=== PATIENT | female | born 1960 | race Caucasian/White ===

== ENCOUNTER 2021-01-13 18:19 | Emergency (ER) | payer MEDICARE, OTHER ==
[~2021-01-13] VITALS: Ht 167.6 cm; Wt 89.4 kg
--- NOTE | 2021-01-13 18:33 | NUR ---
DR SCHNEIDER AT THE BEDSIDE
--- NOTE | 2021-01-13 18:33 | NUR ---
URINE COLLECTED AND SENT TO THE LAB
--- NOTE | 2021-01-13 18:35 | NUR ---
[id number] FROM HOME C/O R SIDED NUMBNESS THAT STARTED 1 HOUR [employer]. THE PATIENT IS ALERT AND ORIENTED X4. THE PATIENT STATES THAT SHE DOES NOT HAVE ANY NUMBNESS AT THIS TIME. DENIES PAIN/DISCOMFORT. IN ROOM AIR AND DENIES SOB. RESPIRATIONR EGULAR AND UNLABORED. WILL CONTINUE TO MONITOR THE PATIENT.
[2021-01-13] MEDS ORDERED: IOHEXOL-350 100 ML VIAL IV ONE (18:55)
[2021-01-13] MEDS ORDERED: IV NS 0.9% 250 ML IV ONE (18:55)
[2021-01-13] MEDS ORDERED: hydrALAZINE HCL IV 20 MG VIAL IV ONE (19:00)
[2021-01-13 19:06] LABS: BASOPHILS % (AUTO) 0.8 % (0.0-2.0); EOSINOPHILS % (AUTO) 2.1 % (0.0-6.0); HEMATOCRIT 41 % (33-45); HEMOGLOBIN 13.3 g/dL (11.5-14.8); LYMPHOCYTES # (AUTO) 1.7 K/uL (0.8-4.8); LYMPHOCYTES % (AUTO) 29.4 % (20.0-44.0); MEAN CORPUSCULAR HGB CONC 33 g/dl (31.0-36.0); MEAN CORPUSCULAR VOLUME 96 fL (82-100); MONOCYTES # (AUTO) 0.4 K/uL (0.1-1.30); MONOCYTES % (AUTO) 7.5 % (2.0-12.0); NEUTROPHILS # (AUTO) 3.6 K/uL (1.8-8.9); NEUTROPHILS % (AUTO) 60.2 % (43.0-81.0); PLATELET COUNT (AUTO) 225 K/uL (150-450); RED BLOOD CELL COUNT(AUTO) 4.23 MIL/uL (4.0-5.2); WHITE BLOOD COUNT (AUTO) 5.9 K/uL (4.3-11.0)
[2021-01-13 19:14] LABS: CALCIUM, SERUM 8.8 mg/dL (8.5-10.1); CARBON DIOXIDE 24 mmol/L (21-32); CHLORIDE 108 mmol/L (98-107); GLUCOSE 102 mg/dL (74-106); POTASSIUM 4.3 mmol/L (3.5-5.1); SODIUM SERUM 143 mmol/L (136-145); UREA NITROGEN, BLOOD 24 mg/dL (7-18)
--- NOTE | 2021-01-13 19:19 | NUR ---
REPORT GIVEN TO NURSE HAND
--- NOTE | 2021-01-13 19:37 | NUR ---
PT TAKEN TO CT
--- NOTE | 2021-01-13 20:24 | NUR ---
Patient does not wish to proceed with medical care recommended by Dr Howe.Pt given information related to possible complications, up to and including , which could occur as a result of leaving the hospital at this time. Patient verbalizes understanding of risks involved due to leaving against medical advice. Patient has signed AMA form.
[2021-01-13 20:26] VITALS: BP 137/76
== END 2021-01-13 20:27 | disposition left against medical advice (07) ==
LOC: ER 18:29
DX: G45.9 Transient cerebral ischemic attack, unspecified (principal); I11.9 Hypertensive heart disease without heart failure; Z86.73 Personal history of transient ischemic attack (TIA), and cerebral infarction without residual deficits; Z20.822 Contact with and (suspected) exposure to COVID-19; Z53.29 Procedure and treatment not carried out because of patient's decision for other reasons
CPT/HCPCS: 36415; 70450; 70496; 70498; 71045; 80048; 82962; 84484; 85025; 85730; 87081; 87426; 93005; 99285; J7050; Q9967; C9803